=== PATIENT | male | born 1945 | race Caucasian/White ===

== ENCOUNTER → 2016-08-10 | Outpatient (CLI) | payer MEDICARE ==
[2016-08-10 10:11] LABS: Basophils # (A) 0.1 k/uL (0-0.2); Basophils % (A) 1 %; CH 31.7; CHCM 33.9; Eosinophils # (A) 0.4 k/uL (0-0.7); Eosinophils % (A) 4 %; HCT 48.7 % (39.0-53.0); HDW 2.51; HGB 15.7 gm/dL (13.0-17.5); Luc # (Auto) 0.14; Luc % (Auto) 2; Lymphocytes # (A) 1.7 k/uL (1.0-4.8); Lymphocytes % (A) 20 %; MCH 30.4 pg (25.0-35.0); MCHC 32.3 g/dL (31.0-37.0); MCV 93.9 fL (80.0-100.0); Mean Platelet Volume 7.3; Monocytes # (A) 0.6 k/uL (0-1.0); Monocytes % (A) 7 %; Neutrophils # (A) 5.6 k/uL (1.3-7.7); Neutrophils % (A) 66 %; RBC 5.18 m/uL (4.30-5.90); RDW 13.5 % (11.5-15.5); WBC 8.5 k/uL (3.8-10.6); WBC (Perox) 8.36
[2016-08-10 10:32] LABS: ALT 34 U/L (21-72); AST 25 U/L (17-59); Alkaline Phosphatase 77 U/L (38-126); Anion Gap 9 mmol/L; Blood Urea Nitrogen 19 mg/dL (9-20); Calcium 9.3 mg/dL (8.4-10.2); Carbon Dioxide 28 mmol/L (22-30); Chloride 104 mmol/L (98-107); Cholesterol 243 mg/dL (<200); Glucose 88 mg/dL (74-99); HDL Cholesterol 57 mg/dL (40-60); Non-African American GFR(MDRD) >60 (>60 ml/min/1.73 sqM); Potassium 4.5 mmol/L (3.5-5.1); Sodium 141 mmol/L (137-145); Total Bilirubin 0.9 mg/dL (0.2-1.3); Triglycerides 112 mg/dL (<150)
[2016-08-10 11:02] LABS: Prostate Specific Antigen 1.01 ng/mL (0.00-4.00)
[2016-08-10 11:42] LABS: Hemoglobin A1C 5.2 % (4.2-6.1)
== END | disposition home or self-care (01) ==
LOC: LABWHC1 09:32
PROVIDERS: ATTEND Internal Medicine Geriatric Medicine
DX: K21.9 Gastro-esophageal reflux disease without esophagitis (principal); R35.0 Frequency of micturition; R73.9 Hyperglycemia, unspecified; R78.0 Finding of alcohol in blood; N40.0 Benign prostatic hyperplasia without lower urinary tract symptoms; R00.1 Bradycardia, unspecified
CPT/HCPCS: 36415; 80053; 80061; 83036; 84153; 84439; 84443; 85025

== ENCOUNTER → 2016-09-18 | Outpatient (CLI) | payer MEDICARE ==
[2016-09-18 10:55] LABS: ALT 28 U/L (21-72); AST 31 U/L (17-59); Alkaline Phosphatase 80 U/L (38-126); Anion Gap 12 mmol/L; Blood Urea Nitrogen 19 mg/dL (9-20); Calcium 9.8 mg/dL (8.4-10.2); Carbon Dioxide 31 mmol/L (22-30); Chloride 100 mmol/L (98-107); Cholesterol 192 mg/dL (<200); Glucose 94 mg/dL (74-99); HDL Cholesterol 65 mg/dL (40-60); Non-African American GFR(MDRD) >60 (>60 ml/min/1.73 sqM); Potassium 4.6 mmol/L (3.5-5.1); Sodium 143 mmol/L (137-145); Total Bilirubin 0.8 mg/dL (0.2-1.3); Total Protein 7.5 g/dL (6.3-8.2); Triglycerides 86 mg/dL (<150)
== END | disposition home or self-care (01) ==
LOC: LABWHC1 09:45
PROVIDERS: ATTEND Internal Medicine Geriatric Medicine
DX: K21.9 Gastro-esophageal reflux disease without esophagitis (principal)
CPT/HCPCS: 36415; 80053; 80061

== ENCOUNTER → 2017-04-28 | Outpatient (CLI) | payer MEDICARE ==
[2017-04-28 08:31] LABS: Basophils # (A) 0.1 k/uL (0-0.2); Basophils % (A) 1 %; CHCM 33.4; Eosinophils # (A) 0.3 k/uL (0-0.7); Eosinophils % (A) 6 %; HCT 47.3 % (39.0-53.0); HDW 2.29; HGB 15.1 gm/dL (13.0-17.5); Luc # (Auto) 0.11; Luc % (Auto) 2; Lymphocytes # (A) 1.5 k/uL (1.0-4.8); Lymphocytes % (A) 25 %; MCH 30.7 pg (25.0-35.0); MCHC 31.9 g/dL (31.0-37.0); MCV 96.3 fL (80.0-100.0); Mean Platelet Volume 7.2; Monocytes # (A) 0.5 k/uL (0-1.0); Monocytes % (A) 7 %; Neutrophils # (A) 3.6 k/uL (1.3-7.7); Neutrophils % (A) 59 %; RBC 4.91 m/uL (4.30-5.90); RDW 14.6 % (11.5-15.5); WBC (Perox) 5.64
[2017-04-28 09:29] LABS: ALT 34 U/L (21-72); AST 38 U/L (17-59); Alkaline Phosphatase 91 U/L (38-126); Anion Gap 7 mmol/L; Blood Urea Nitrogen 16 mg/dL (9-20); Calcium 9.2 mg/dL (8.4-10.2); Carbon Dioxide 29 mmol/L (22-30); Chloride 103 mmol/L (98-107); Cholesterol 181 mg/dL (<200); Glucose 90 mg/dL (74-99); HDL Cholesterol 67 mg/dL (40-60); Non-African American GFR(MDRD) >60 (>60 ml/min/1.73 sqM); Potassium 4.5 mmol/L (3.5-5.1); Sodium 139 mmol/L (137-145); Total Bilirubin 0.6 mg/dL (0.2-1.3); Total Protein 6.6 g/dL (6.3-8.2)
[2017-04-29 10:53] LABS: Hemoglobin A1C 5.4 % (4.2-6.1)
== END | disposition home or self-care (01) ==
LOC: LABWHC1 07:46
PROVIDERS: ATTEND Internal Medicine Geriatric Medicine
DX: K21.9 Gastro-esophageal reflux disease without esophagitis (principal); R73.9 Hyperglycemia, unspecified; E78.00 Pure hypercholesterolemia, unspecified
CPT/HCPCS: 36415; 80053; 80061; 83036; 84439; 84443; 85025

== ENCOUNTER → 2017-12-16 | Outpatient (CLI) | payer MEDICARE ==
[2017-12-16 09:26] LABS: Basophils # (A) 0.1 k/uL (0-0.2); Basophils % (A) 2 %; Eosinophils # (A) 0.4 k/uL (0-0.7); Eosinophils % (A) 8 %; HCT 49.6 % (39.0-53.0); HGB 16.2 gm/dL (13.0-17.5); Lymphocytes # (A) 1.4 k/uL (1.0-4.8); Lymphocytes % (A) 23 %; MCH 30.5 pg (25.0-35.0); MCHC 32.7 g/dL (31.0-37.0); MCV 93.2 fL (80.0-100.0); Mean Platelet Volume 6.9; Monocytes # (A) 0.5 k/uL (0-1.0); Monocytes % (A) 9 %; Neutrophils # (A) 3.3 k/uL (1.3-7.7); Neutrophils % (A) 57 %; Platelet Count 311 k/uL (150-450); RBC 5.32 m/uL (4.30-5.90); RDW 13.6 % (11.5-15.5); WBC 5.9 k/uL (3.8-10.6)
[2017-12-16 09:33] LABS: ALT 35 U/L (21-72); AST 33 U/L (17-59); Albumin 4.3 g/dL (3.5-5.0); Alkaline Phosphatase 79 U/L (38-126); Blood Urea Nitrogen 16 mg/dL (9-20); Calcium 9.6 mg/dL (8.4-10.2); Carbon Dioxide 27 mmol/L (22-30); Chloride 105 mmol/L (98-107); Cholesterol 200 mg/dL (<200); Creatine Kinase 198 U/L (55-170); Glucose 86 mg/dL (74-99); HDL Cholesterol 55 mg/dL (40-60); LDL Cholesterol,Calculated 121 mg/dL (0-99); Total Bilirubin 0.9 mg/dL (0.2-1.3); Total Protein 6.8 g/dL (6.3-8.2); Triglycerides 121 mg/dL (<150)
[2017-12-16 10:01] LABS: Prostate Specific Antigen 1.15 ng/mL (0.00-4.00)
[2017-12-16 10:51] LABS: Anion Gap 11 mmol/L; Potassium 5.3 mmol/L (3.5-5.1); Sodium 143 mmol/L (137-145)
[2017-12-16 17:28] LABS: Hemoglobin A1C 5.3 % (4.0-6.0)
== END | disposition home or self-care (01) ==
LOC: LABWHC1 08:13
PROVIDERS: ATTEND Internal Medicine Geriatric Medicine
DX: E78.00 Pure hypercholesterolemia, unspecified (principal); R73.9 Hyperglycemia, unspecified; N40.0 Benign prostatic hyperplasia without lower urinary tract symptoms; K21.9 Gastro-esophageal reflux disease without esophagitis
CPT/HCPCS: 36415; 80053; 80061; 82550; 83036; 84153; 85025

== ENCOUNTER → 2019-02-09 | Outpatient (CLI) | payer MEDICARE ==
--- NOTE | 2019-02-09 16:48 | CONS ---
CONSULTATION REASON FOR CONSULTATION: Sleep apnea. This is a 73-year-old male patient who is coming in today accompanied by his , a retired [employer] nurse, due to concerns about obstructive sleep apnea. His has noted that the patient is snoring very loudly and he is quitting breathing at nighttime and is feeling fatigued during the day. He goes to bed between 9 and 10 p.m. and wakes up at 7 a.m. in the morning. He feels tired during the day and occasionally falls asleep and takes naps. He is averaging around 7 to 8 hours of sleep. He never falls asleep while driving his car. He drives only short distances. On one occasion he had a long trip out of state and he did not fall asleep. He denies waking up choking or gasping for air. No restlessness in the lower extremities. No sleepwalking or sleeptalking. No nighttime chest pain or palpitations. There is occasional heartburn, mainly in the morning. He does wake up tired, however. He drinks around 4 cups of coffee during the day and 2 to 3 beers at nighttime. No recent weight gain or weight loss. PAST MEDICAL HISTORY: 1. Depression. 2. Chronic back pain. 3. Hyperlipidemia. 4. BPH. SURGICAL HISTORY: Surgical history involves inguinal hernia repair. DRUG ALLERGIES: SULFA. OUTPATIENT MEDICATIONS: Outpatient medications include: 1. Flomax 0.4 mg p.o. daily. 2. Prilosec 20 mg p.o. daily. 3. Vicodin on an as-needed basis. 4. A cholesterol drug. 5. An anti-depressant drug. He cannot recall the brand. SOCIAL HISTORY: The patient is a nonsmoker. No history of alcoholism. History of history of IV drugs. Drinks 3 beers at nighttime. FAMILY HISTORY: Negative for sleep apnea. Family history is positive for heart disease. Both of his parents had heart disease. REVIEW OF SYSTEMS: Fourteen-point review of systems was done. Positive findings are all mentioned above in the history of present illness. His weight is up by around 7 pounds over the past one year. He wakes up at least 2-3 times in the middle of the night, mainly to use the bathroom, as the patient is known to have BPH. He averages around 8 hours of sleep. No history of any motor vehicle accidents while sleeping. No drowsiness or veering off the road while driving his car. He sleeps in different body positions, including back, side and stomach. He watches TV in the bedroom. He takes a nap around 3 p.m. As mentioned, he drinks 4-5 caffeinated beverages a day, mainly in the form of coffee. No chest pain. No palpitations. No cardiac arrhythmias. No cough. No sputum production. No pleurisy. No aspiration. No nausea or vomiting. No altered mentation. No morning headaches. No seizure activity. PHYSICAL EXAMINATION: VITAL SIGNS: BP is 122/79, pulse 72, respirations 16, temperature 98.1, saturation 94% on room air. Height is 5 feet 8 inches, weight 193, BMI 29.3. GENERAL APPEARANCE: Calm, comfortable. HEAD: Atraumatic, normocephalic. NECK: Supple. Mallampati class IV. There is no goiter or neck masses. LUNGS: Clear to auscultation. HEART: Heart sounds are regular rate and rhythm. Normal S1, S2. No S3, S4. No murmurs. ABDOMEN: Soft, nontender. EXTREMITIES: No edema. No cyanosis or clubbing. NEUROLOGIC: The patient is alert and oriented x3. No focal neurological deficits. PSYCHIATRIC: Negative for anxiety or depression. SKIN: Negative for any wounds or ulcerations. IMPRESSION: 1. Hypersomnia/fatigue, currently under investigation. Consider obstructive sleep apnea. [place] score is currently 6. 2. Loud snoring. 3. Witnessed apneas. 4. Benign prostatic hypertrophy. 5. Hyperlipidemia. 6. Chronic back pain. 7. History of depression. PLAN: 1. Will proceed with a screening polysomnogram to evaluate this patient for sleep apnea. 2. Will encourage weight loss. 3. Overall sleep hygiene measures are acceptable. He is taking caffeine to get himself stimulated during the day. He takes a nap in the afternoon. Will make further investigations based on results of the sleep study. CPAP therapy will be offered if needed. MMODL / IJN: [id number] /
== END ==
LOC: SLEEP 13:32
PROVIDERS: ATTEND Internal Medicine Critical Care Medicine
DX: G47.10 Hypersomnia, unspecified (principal); N40.0 Benign prostatic hyperplasia without lower urinary tract symptoms; E78.5 Hyperlipidemia, unspecified; G89.29 Other chronic pain; M54.9 Dorsalgia, unspecified; F32.9 Major depressive disorder, single episode, unspecified; Z79.899 Other long term (current) drug therapy; Z88.2 Allergy status to sulfonamides
CPT/HCPCS: 99211

== ENCOUNTER → 2019-05-14 | Outpatient (CLI) | payer MEDICARE ==
--- NOTE | 2019-05-14 17:00 | ECHOF ---
Referral Reason:G47.33 VENECIA MEASUREMENTS -------- HEIGHT: 177.8 cm WEIGHT: 83.9 kg BP: RVIDd: 3.3 cm (< 3.3) IVSd: 1.1 cm (0.6 - 1.1) LVIDd: 4.4 cm (3.9 - 5.3) LVPWd: 1.2 cm (0.6 - 1.1) IVSs: 1.5 cm LVIDs: 3.0 cm LVPWs: 1.5 cm LA Diam: 3.6 cm (2.7 - 3.8) LAESV Index (A-L): 21.94 ml/m Ao Diam: 3.0 cm (2.0 - 3.7) AV Cusp: 2.2 cm (1.5 - 2.6) MV EXCURSION: 14.577 mm (> 18.000) MV EF SLOPE: 34 mm/s (70 - 150) EPSS: 0.7 cm MV E Aamdor: 0.68 m/s MV DecT: 277 ms MV A Amador: 0.83 m/s MV E/A Ratio: 0.82 RAP: 5.00 mmHg RVSP: 25.88 mmHg TAPSE: 19.54 mm FINDINGS -------- Sinus rhythm. This was a technically adequate study. The left ventricular size is normal. There is borderline concentric left ventricular hypertrophy. Overall left ventricular systolic function is normal with, an EF between 60 - 65 %. The diastolic filling pattern is normal for the age of the patient 12.25. The right ventricle is mildly enlarged. Normal LA size by volume 22+/-6 ml/m2. The right atrium is normal in size. Lipomatous Hypertrophy of the atrial septum is present The aortic valve is trileaflet and appears structurally normal. The mitral valve is normal. Mild tricuspid regurgitation present. Right ventricular systolic pressure is normal at < 35 mmHg. Trace/mild (physiologic) pulmonic regurgitation. The aortic root size is normal. Normal inferior vena cava with normal inspiratory collapse consistent with estimated right atrial pre ssure of 5 mmHg. There is no pericardial effusion. CONCLUSIONS -------- 1. Sinus rhythm. 2. This was a technically adequate study. 3. The left ventricular size is normal. 4. There is borderline concentric left ventricular hypertrophy. 5. Overall left ventricular systolic function is normal with, an EF between 60 - 65 %. 6. The diastolic filling pattern is normal for the age of the patient 12.25 7. The right ventricle is mildly enlarged. 8. Normal LA size by volume 22+/-6 ml/m2. 9. The right atrium is normal in size. 10. Lipomatous Hypertrophy of the atrial septum is present 11. The aortic valve is trileaflet and appears structurally normal. 12. The mitral valve is normal. 13. Mild tricuspid regurgitation present. 14. Right ventricular systolic pressure is normal at < 35 mmHg. 15. Trace/mild (physiologic) pulmonic regurgitation. 16. The aortic root size is normal. 17. Normal inferior vena cava with normal inspiratory collapse consistent with estimated right atrial pressure of 5 mmHg. 18. There is no pericardial effusion. [employer] REVERSE WINDER: Janine Wagner RDCS
== END ==
LOC: RADECHMAIN 12:50
PROVIDERS: ATTEND Internal Medicine Critical Care Medicine
DX: I07.1 Rheumatic tricuspid insufficiency (principal); I37.1 Nonrheumatic pulmonary valve insufficiency
CPT/HCPCS: 93306

== ENCOUNTER → 2019-09-09 | Outpatient (CLI) | payer MEDICARE ==
[2019-09-09 11:50] LABS: Basophils # (A) 0.1 k/uL (0-0.2); Basophils % (A) 1 %; Eosinophils # (A) 0.3 k/uL (0-0.7); Eosinophils % (A) 4 %; HCT 46.5 % (39.0-53.0); HGB 15.2 gm/dL (13.0-17.5); Lymphocytes # (A) 1.4 k/uL (1.0-4.8); Lymphocytes % (A) 21 %; MCH 30.4 pg (25.0-35.0); MCHC 32.7 g/dL (31.0-37.0); MCV 92.9 fL (80.0-100.0); Mean Platelet Volume 7.4; Monocytes # (A) 0.5 k/uL (0-1.0); Monocytes % (A) 8 %; Neutrophils # (A) 4.2 k/uL (1.3-7.7); Neutrophils % (A) 64 %; Platelet Count 266 k/uL (150-450); RBC 5.01 m/uL (4.30-5.90); RDW 13.4 % (11.5-15.5); WBC 6.6 k/uL (3.8-10.6)
[2019-09-09 16:51] LABS: Chol/HDL Ratio 3.02; LDL Cholesterol,Calculated 98.4 mg/dL (0.0-131.0); VLDL Calculation 16.6 mg/dL (5.00-40.00)
[2019-09-09 16:52] LABS: Albumin 4.1 g/dL (3.80-4.90); Albumin/Globulin Ratio 2.05 (1.60-3.17); Anion Gap 9.4 mmol/L (4.00-12.00); Calcium 9.2 mg/dL (8.7-10.3); Carbon Dioxide 26.6 mmol/L (21.6-31.8); Non-African American GFR(CKD) 73.3 (60.0-200.0); Potassium 4.5 mmol/L (3.5-5.5); Total Bilirubin 0.8 mg/dL (0.2-1.2); Total Protein 6.1 g/dL (6.2-8.2)
[2019-09-09 16:59] LABS: Hemoglobin A1C 5.5 % (4.0-6.0)
== END | disposition home or self-care (01) ==
LOC: LABWHC1 09:50
PROVIDERS: ATTEND Nurse Practitioner Gerontology
DX: N40.0 Benign prostatic hyperplasia without lower urinary tract symptoms (principal); E78.2 Mixed hyperlipidemia; R73.9 Hyperglycemia, unspecified
CPT/HCPCS: 36415; 80053; 80061; 83036; 84153; 84443; 85025

== ENCOUNTER → 2020-05-19 | Outpatient (CLI) | payer MEDICARE ==
--- NOTE | 2020-05-19 11:44 | P.STRESS ---
- Stress Test Note Stress Test Results/Findings: Exam Performed: stress echo exercise Exam Date: 05/19/20 Reason for Exam: CP / SOB Height: 5 ft 10 in Weight: 88.451 kg Protocol: VICTORIANO Stage: 2 Duration of Exercise: 3:15 Resting Heart Rate: 74 Resting Blood Pressure: 113/69 Maximum Achieved Heart Rate: 135 Maximum Achieved Blood Pressure: 180/85 85% PMHR: 122 100% PMHR: 144 METS: 4.8 Technologist Comment: Stress Test Results/Findings: Baseline heart rate 74 beats a minute, Baseline blood pressure 113/69 mmHg Patient exercised on a Victoriano protocol for only 3 minutes 15 seconds, achieving a peak heart rate of 131 beats a minute Twelve-lead ECG shows a right bundle branch block with left anterior fascicular block There was no ECG is for ischemia no arrhythmias were noted Baseline 2-D echo showed normal LV systolic function without segmental wall motion abnormalities At peak exercise there was excellent augmentation of oral LV contractility without development of any wall motion amenities After complete healing well systolic function within normal line peak blood pressure was 180/85 mmHg Impression Very poor exercise capacity and a Victoriano protocol Patient was short of breath with this level of workload Right bundle branch block left anterior fascicular block at baseline on ECG No stress-induced ischemia no ST segment abnormalities with exercise
== END | disposition home or self-care (01) ==
LOC: RADNMMAIN 08:55
PROVIDERS: ATTEND Internal Medicine Geriatric Medicine
DX: I45.2 Bifascicular block (principal); R06.02 Shortness of breath
CPT/HCPCS: 93351

== ENCOUNTER → 2020-06-26 | Outpatient (CLI) | payer MEDICARE ==
[2020-06-26 10:56] LABS: Basophils # (A) 0.1 k/uL (0-0.2); Basophils % (A) 1 %; Eosinophils # (A) 0.4 k/uL (0-0.7); Eosinophils % (A) 7 %; HCT 47.6 % (39.0-53.0); HGB 15.3 gm/dL (13.0-17.5); Lymphocytes # (A) 1.4 k/uL (1.0-4.8); Lymphocytes % (A) 25 %; MCHC 32.2 g/dL (31.0-37.0); MCV 93.2 fL (80.0-100.0); Mean Platelet Volume 6.9; Monocytes # (A) 0.5 k/uL (0-1.0); Monocytes % (A) 9 %; Neutrophils # (A) 3.1 k/uL (1.3-7.7); Neutrophils % (A) 56 %; Platelet Count 361 k/uL (150-450); RDW 13.3 % (11.5-15.5); WBC 5.6 k/uL (3.8-10.6)
[2020-06-26 16:49] LABS: Hemoglobin A1C 5.3 % (4.0-6.0)
[2020-06-26 17:11] LABS: African American GFR (CKD) 84.4 (60.0-200.0); Albumin 4.2 g/dL (3.80-4.90); Albumin/Globulin Ratio 1.91 (1.60-3.17); Anion Gap 6.8 mmol/L (4.00-12.00); Calcium 9.5 mg/dL (8.7-10.3); Carbon Dioxide 29.2 mmol/L (21.6-31.8); Chol/HDL Ratio 3.3; Globulin 2.2 g/dL (1.6-3.3); LDL Cholesterol,Calculated 112.4 mg/dL (0.0-131.0); Non-African American GFR(CKD) 72.8 (60.0-200.0); Potassium 4.8 mmol/L (3.5-5.5); Total Bilirubin 0.7 mg/dL (0.2-1.2); Total Protein 6.4 g/dL (6.2-8.2); VLDL Calculation 16.6 mg/dL (5.00-40.00)
== END | disposition home or self-care (01) ==
LOC: LABWHC1 09:25
PROVIDERS: ATTEND Internal Medicine Geriatric Medicine
DX: E78.2 Mixed hyperlipidemia (principal); R07.9 Chest pain, unspecified; R06.02 Shortness of breath
CPT/HCPCS: 36415; 80053; 80061; 83036; 84443; 85025

== ENCOUNTER → 2020-07-04 | Outpatient (CLI) | payer MEDICARE ==
--- NOTE | 2020-07-04 11:35 | XR ---
EXAMINATION TYPE: XR chest 2V DATE OF EXAM: 07/04/2020 COMPARISON: None INDICATION: Short of breath TECHNIQUE: Frontal and lateral views of the chest are obtained. FINDINGS: The heart size is normal. The pulmonary vasculature is normal. The lungs are clear. IMPRESSION: 1. No acute pulmonary process.
== END | disposition home or self-care (01) ==
LOC: LABWHC1 10:49
PROVIDERS: ATTEND Internal Medicine Geriatric Medicine
DX: R06.02 Shortness of breath (principal); Z20.828 Contact with and (suspected) exposure to other viral communicable diseases
CPT/HCPCS: 36415; 71046; 86769

== ENCOUNTER → 2020-11-29 | Outpatient (CLI) | payer MEDICARE ==
--- NOTE | 2020-11-29 15:57 | XR ---
EXAMINATION TYPE: XR chest 2V DATE OF EXAM: 11/29/2020 COMPARISON: 07/04/2020 HISTORY: Dry cough for 3 weeks TECHNIQUE: Frontal and lateral views of the chest are obtained. FINDINGS: Heart size is within normal limits. No pleural effusion, focal consolidation or pneumothor ax. Degenerative changes of the thoracic spine. Hyperaeration lungs and flattening of the diaphragms suggestive of COPD. IMPRESSION: 1. No acute pulmonary disease. 2. COPD
== END | disposition home or self-care (01) ==
LOC: RADXRMAIN 11:49
PROVIDERS: ATTEND Nurse Practitioner Family
DX: J44.9 Chronic obstructive pulmonary disease, unspecified (principal)
CPT/HCPCS: 71046

== ENCOUNTER → 2022-11-13 | Outpatient (CLI) | payer MEDICARE ==
--- NOTE | 2022-11-13 18:08 | MR ---
EXAMINATION TYPE: MR lumbar spine wo/w con DATE OF EXAM: 11/13/2022 COMPARISON: Plain films 11/22/2022 HISTORY: Lower back pain, into back of left thigh. CONTRAST: 0 mL intravenous Gadavist. TECHNIQUE: Multiplanar, multisequence images of the lumbar spine were acquired. FINDINGS: L5-S1: There is a large left paracentral disc herniation measuring 1 cm. This is displacing the exiti ng nerve root and thecal sac posteriorly at this level. Left lateral recess is stenotic. Correlate wi th left S1 radicular symptoms. L4-L5: There is narrowing of disc height through this level. Residual disc bulge is mild anterior the pauline sac compression. Facet hypertrophy as posterior lateral thecal sac compression. No spinal canal s tenosis is present. There is moderate bilateral foraminal narrowing. L3-L4: There is loss of disc height this level. Residual disc bulge causing anterior thecal sac blanquita ening. Facet hypertrophy and ligamentum flavum laxity is present. No spinal canal stenosis present. M ild right and moderate left foraminal narrowing is present. L2-L3: There is loss of disc height at this level. Disc uncovering is present from minimal retrolisth esis of L1-2 on L3. Residual disc has moderate anterior thecal sac impression some spinal canal narro wing is present. Facet hypertrophy and ligamentum flavum laxity is present with posterior lateral the pauline sac compression. Moderate bilateral foraminal stenosis is present. L1-L2: No significant disc bulge or disc herniation. There is loss of disc height at this level. No spinal canal stenosis. Some foraminal narrowing is present. T12-L1: No significant disc bulge or disc herniation. No spinal canal stenosis. No foraminal stenos is. Neural foramen are patent.. Following contrast administration no abnormal enhancement is evident. Endplate changes appear to be chronic. Vertebral body heights are preserved. IMPRESSION: 1. Large left paracentral disc herniation L5-S1 displacing the left S1 nerve root and thecal sac. Cor relate with left S1 radicular symptoms. 2. Multilevel degenerative disc changes greatest at L2-3 and L4-5. 3. Disc bulging and facet hypertrophy contributing to spinal canal narrowing. No AP spinal canal sten osis. 4. Multilevel foraminal narrowing.
== END | disposition home or self-care (01) ==
LOC: RADMRIMAIN 11:57
PROVIDERS: ATTEND Internal Medicine Geriatric Medicine
DX: M47.816 Spondylosis without myelopathy or radiculopathy, lumbar region (principal); M46.07 Spinal enthesopathy, lumbosacral region; M51.37 Other intervertebral disc degeneration, lumbosacral region; M99.73 Connective tissue and disc stenosis of intervertebral foramina of lumbar region
CPT/HCPCS: 72158; A9585

== ENCOUNTER → 2023-06-19 | Outpatient (CLI) | payer MEDICARE ==
[~2023-06-19] MED LIST: REGADENOSON 0.4 MG/5 ML SYRINGE IV PRN
--- NOTE | 2023-06-19 12:08 | CA ---
Lexiscan Nuclear Stress Test Report Name: Baldemar Lewis Exam Date: 06/19/2023 11:07 Exam Location: [facility] Ht (in): 70 Wt (lb): 190 BSA: 2.04 Ordering Phys: Baldemar Sanchez MD Referring Phys: EDVIN,, Technologist: Yousif Tejada Age: 78 Gender: M : 1945 Procedure CPT: Indications: I20.9 Angina ICD-10 Codes: Patient History: ELENA, ANGINA, CHOL, FAMILY HX Medications: SEE LIST Meds past 24 hrs: Pretest Chest Pain: STRESS TEST Lexiscan Protocol Exercise Duration (min:sec): 02:[address] Depressions (mm): Angina Score: Rinaldi Score: Resting HR (bpm): 79 Peak HR (bpm): 90 Resting BP (mmHg): 125 / 83 Peak BP (mmHg): 145 / 66 MPHR: 141 Target HR: 120 % MPHR: 64 METS: 1.0 Total Dose: Peak Dose: Atropine: Double Product: 98298 BP Response: Stress Termination: END OF DOSAGE Stress Symptoms: Stress Summary: ECG ANALYSIS Resting ECG: Sinus rhythm, right bundle branch block, heart rate 70 beats a minute Stress ECG: No significant ST-T wave changes that are diagnostic for ischemia with Lexiscan infusion. Occasional PVCs during the stress test. No sustained arrhythmias CONCLUSIONS Nonischemic ECG response to Lexiscan infusion normal clinical and hemodynamic response to Lexiscan infusion Overall normal ECG portion of nuclear Lexiscan stress test Please refer to the nuclear imaging portion of the stress test for complete interpretation of this study Dr Miguelangel Arnold (Electronically Signed) Final Date: 19 June 2023 12:06
--- NOTE | 2023-06-19 13:16 | NM ---
EXAMINATION TYPE: NM stress lexiscan cardiolite DATE OF EXAM: 06/19/2023 COMPARISON: NONE CLINICAL INDICATION: Male, 78 years old with history of I20.9 ANGINA; TECHNIQUE: After the intravenous administration of 9.2 mCi Tc 99m Sestamibi - Cardiolite resting SPE CT images acquired 45 minutes post injection. The patient received 0.4mg Lexiscan, 24.5 mCi Tc 99m Sestamibi - Stress images obtained [address] injection FINDINGS: Review of stress and rest SPECT images demonstrates small area of reversible ischemia apical lateral wall. Correlate clinically. Gated analysis shows normal wall motion with an estimated left ventricula r ejection fraction of 68 %. IMPRESSION: Small area of reversible ischemia apical lateral wall. Correlate clinically.
== END | disposition home or self-care (01) ==
LOC: RADNMMAIN 08:52
PROVIDERS: ATTEND Internal Medicine Geriatric Medicine
DX: I20.9 Angina pectoris, unspecified (principal); E78.00 Pure hypercholesterolemia, unspecified
CPT/HCPCS: 93017; 78452; A9500; J2785

== ENCOUNTER → 2023-07-21 | Outpatient (CLI) | payer MEDICARE ==
[2023-07-21 19:46] LABS: HCT 48.9 % (39.6-50.0); HGB 16.1 g/dL (13.0-17.0); MCH 31.4 pg (27.0-32.0); MCHC 32.9 g/dL (32.0-37.0); MCV 95.5 FL (80.0-97.0); Mean Platelet Volume 10.8 FL (9.5-12.2); NRBC Per 100 WBC 0.02 X 10*3/uL (0.00-0.01); Platelet Count 297 X 10*3/uL (140-440); RBC 5.12 X 10*6/uL (4.40-5.60); RDW 13.9 % (11.5-14.5); WBC 9.07 X 10*3/uL (4.50-10.00)
[2023-07-21 20:27] LABS: Blood Urea Nitrogen 13.3 mg/dL (9.0-27.0); Carbon Dioxide 24.6 mmol/L (21.6-31.8); Chloride 103 mmol/L (96-109); Potassium 5.1 mmol/L (3.5-5.5); Sodium 139 mmol/L (135-145)
== END | disposition home or self-care (01) ==
LOC: LABPAT 13:54
PROVIDERS: ATTEND Internal Medicine
DX: Z01.812 Encounter for preprocedural laboratory examination (principal); R06.02 Shortness of breath
CPT/HCPCS: 80051; 82565; 84520; 85027

== ENCOUNTER → 2023-07-25 | Day surgery (SDC) | payer MEDICARE ==
[~2023-07-25] MED LIST changes: +ALPRAZolam 0.25 MG TAB PO PRN; +ALPRAZolam 0.5 MG TAB PO PRN; +ASPIRIN 325 MG TAB PO STA; +HEPARIN SODIUM 1,000 UN/ML (10ML VL) IVP ONE; +HEPARIN SODIUM,PORCINE (1 ML) 2,500 UNIT in SODIUM CHLORIDE 0.9% 250 ML IRRIGATION PRN; +HEPARIN SODIUM,PORCINE 10,000 UNIT in SODIUM CHLORIDE 0.9% 1,000 ML IRRIGATION PRN; +IOPAMIDOL-370 100ML BTL INJ ONE; +LIDOCAINE 1% INJ 10MG/ML (20 ML MDV) SQ ONE; +MIDAZOLAM 2 MG/2 ML VIAL IVP ONE; +NITROGLYCERIN SL TABS 0.4 MG TAB SUBLINGUAL PRN; -REGADENOSON 0.4 MG/5 ML SYRINGE IV PRN; +SODIUM CHLORIDE 0.9% 1,000 ML in EMPTY BAG 1 BAG IV SCH; +VERAPAMIL SYRINGE (5 MG/10 ML) INTRAARTER ONE; +fentaNYL (PF) 50 MCG/ML 2 ML AMP IVP ONE
--- NOTE | 2023-07-25 13:23 | P.CARDCATH ---
Description of Procedure: PROCEDURES PERFORMED: Left heart catheterization, bilateral coronary angiography, ultrasound guided arterial access INDICATION: Abnormal stress test CONSENT:I have discussed the risks, benefits and alternative therapies for the above-mentioned procedure and for both sedation/analgesia as well as necessary blood product administration, if indicated, as they pertain to this patient. The patient has indicated understanding and acceptance of the risks and procedures discussed. PROCEDURE: After the risks, benefits and alternatives of the above mentioned procedure explained in detail with the patient, informed consent was obtained. Patient was taken to the catheterization lab and prepped and draped in usual fashion. Ultrasound guidance was used to assess for arterial access. 1% lidocaine was used to anesthetize the right radial artery. A 6-Angolan sheath was placed in the right radial artery using modified Seldinger technique and ultrasound guidance. Left coronary angiography was performed with a 5-Angolan JL 3.5 catheter and right coronary angiography was performed with a 5-Angolan AR2 catheter in various views. A 5-Angolan AR2 catheter was inserted into the left ventricle and pressure measurements were obtained. The right radial sheath was removed and a TR band was placed with hemostasis achieved. The patient to lerated the procedure well. Patient was transported back to the post catheterization holding area in stable condition. Conscious Sedation: Patient was monitored under the direct supervision of myself for conscious sedation using Versed and fentanyl for a total duration of 12 minutes HEMODYNAMICS: Order: 112/78 LV: 118/5, LVEDP 10 SELECTIVE CORONARY ARTERIOGRAPHY: LEFT MAIN: The left main is a large caliber vessel which bifurcates into the LAD and circumflex. There is no significant stenosis. LEFT ANTERIOR DESCENDING CORONARY ARTERY: LAD is a large caliber vessel which wraps around to the apex. There is no significant stenosis. LEFT CIRCUMFLEX CORONARY ARTERY: Left circumflex is a moderate caliber vessel without significant stenosis. RIGHT CORONARY ARTERY: The right coronary artery is a large caliber vessel which gives off a PDA and PLV branch and is the dominant vessel. There is no significant stenosis. FINAL IMPRESSION: 1. Normal coronary arteries as described above. 2. Normal left sided filling pressures PLAN: 1. Aggressive risk factor modification per most recent ACC/AHA guidelines. 2. Follow-up in the office in 1-2 weeks.
[2023-07-25 16:54] VITALS: BP 119/63; PULSE 60; RESP 16
== END ==
LOC: CATHCVL 10:39
PROVIDERS: ATTEND Internal Medicine
DX: I45.2 Bifascicular block (principal); E78.5 Hyperlipidemia, unspecified; F10.90 Alcohol use, unspecified, uncomplicated; Z82.49 Family history of ischemic heart disease and other diseases of the circulatory system; Z79.899 Other long term (current) drug therapy
CPT/HCPCS: 93458; 76937; C1769; C1894; J2250; J2001; J3010; J1644; Q9967

== ENCOUNTER 2023-10-18 00:01 | Emergency (ER) | payer MEDICARE ==
[2023-10-18 00:56] VITALS: BP 136/79; PULSE 86; RESP 18; TEMP 99
[2023-10-18] MEDS: DIPH,PERTUS(ACELL)TETVAC-LF 0.5 ML VIAL IM ONE (01:33)
--- NOTE | 2023-10-18 01:55 | ED ---
Wound/Laceration HPI - General Chief Complaint: Wound/Laceration Stated Complaint: fell facial injury Time Seen by Provider: 10/18/23 00:36 Source: patient Mode of arrival: ambulatory Limitations: no limitations - History of Present Illness Initial Comments: 78-year-old male presenting with chief complaint of facial laceration. Patient was walking in his backyard tonight when he tripped over a pile of bricks that he was unable to see in the dark. Patient is his mouth but now has a 1 cm laceration to the upper lip as well as his 1 cm laceration to the inside of the upper lip. Patient had no loss of consciousness or blood thinners. He denies any headache, neck pain, vision or hearing changes, nausea, vomiting, dizziness, numbness, tingling, or weakness. - Related Data Home Medications Medication Instructions Recorded Confirmed Citalopram Hydrobromide [CeleXA] 20 mg PO DAILY 10/17/15 07/25/23 Tamsulosin HCl [Flomax] 1 tab PO DAILY 10/17/15 07/25/23 ALPRAZolam [Xanax] 0.25 mg PO BID PRN 07/22/23 07/25/23 Albuterol Inhaler [Ventolin Hfa 1 - 2 puff INHALATION BID 07/22/23 07/25/23 Inhaler] Aspirin [Adult Low Dose Aspirin EC] 81 mg PO DAILY 07/22/23 07/25/23 Atorvastatin [Lipitor] 10 mg PO DAILY 07/22/23 07/25/23 Co Q 10 (Unk) 1 tab PO DAILY 07/22/23 07/25/23 Metoprolol Succinate [Metoprolol 25 mg PO DAILY 07/22/23 07/25/23 Succinate ER] Pantoprazole [Protonix] 40 mg PO DAILY 07/22/23 07/25/23 amLODIPine BESYLATE 2.5 mg PO DAILY 07/22/23 07/25/23 Previous Rx's Medication Instructions Recorded Amoxic-Pot Clav 875-125Mg 1 tab PO Q12HR 10 Days #20 tab 10/18/23 [Augmentin 875-125] Allergies Allergy/AdvReac Type Severity Reaction Status Date / Time Sulfa (Sulfonamide AdvReac Rash/Hives Verified 10/18/23 00:20 Antibiotics) Review of Systems ROS Statement: Those systems with pertinent positive or pertinent negative responses have been documented in the HPI. ROS Other: All systems not noted in ROS Statement are negative. Past Medical History Past Medical History: GERD/Reflux, Prostate Disorder History of Any Multi-Drug Resistant Organisms: None Reported Past Surgical History: Hernia Repair Past Psychological History: No Psychological Hx Reported Smoking Status: Never smoker Past Alcohol Use History: Rare Past Drug Use History: None Reported General Exam Limitations: no limitations General appearance: alert, in no apparent distress Head exam: Present: normocephalic, other (Laceration to the upper lip) Eye exam: Present: normal appearance, PERRL, EOMI ENT exam: Present: mucous membranes moist (Anterior laceration to the upper lip as well as an exterior laceration, each is 1 cm long) Neck exam: Present: normal inspection, full ROM. Absent: tenderness Respiratory exam: Present: normal lung sounds bilaterally. Absent: respiratory distress, wheezes, rales, rhonchi, stridor Cardiovascular Exam: Present: regular rate, normal rhythm, normal heart sounds. Absent: systolic murmur, diastolic murmur, rubs, gallop, clicks Extremities exam: Present: normal inspection Neurological exam: Present: alert, oriented X3 Expanded Patient oriented to: Present: person, place, time Speech: Present: fluid speech Cranial nerves: EOM's Intact: Normal Motor strength exam: RUE: 5, LUE: 5, RLE: 5, LLE: 5 Eye Response: (4) open spontaneously Motor Response: (6) obeys commands Verbal Response: (5) oriented Pollo Total: 15 Psychiatric exam: Present: normal affect, normal mood Course Vital Signs 10/18/23 00:16 Temperature 99 F Pulse Rate 86 Respiratory 18 Rate Blood Pressure 136/79 O2 Sat by Pulse 96 Oximetry Procedures - Laceration Laceration #1 Consent Obtained: verbal consent Indication: laceration Site: lip Size (cm): 1 Description: flap Depth: simple, single layer Anesthetic Used: lidocaine 1%, without epi Anesthesia Technique: local infiltration Pre-repair: wound explored, irrigated extensively Type of Sutures: nylon Size of Sutures: 5-0 Number of Sutures: 3 Technique: simple, interrupted Patient Tolerated Procedure: well Laceration #2 Consent Obtained: verbal consent Indication: laceration Site: lip Size (cm): 1 Description: linear Depth: simple, single layer Anesthetic Used: lidocaine 1%, without epi Anesthesia Technique: local infiltration Pre-repair: wound explored Type of Sutures: vicryl Size of Sutures: 5-0 Number of Sutures: 1 Technique: simple, interrupted Patient Tolerated Procedure: well Medical Decision Making - Medical Decision Making Was pt. sent in by a medical professional or institution (, [facility], [facility]ER, urgent care, hospital, or shelter...) When possible be specific @ -No Did you speak to anyone other than the patient for history (EMS, parent, family, police, friend...)? What history was obtained from this source @ -No Did you review nursing and triage notes (agree or disagree)? Why? @ -I reviewed and agree with nursing and triage notes Were old charts reviewed (outside hosp., previous admission, EMS record, old EKG, old radiological studies, urgent care reports/EKG's, shelter records)? Report findings @ -No old charts were reviewed Differential Diagnosis (chest pain, altered mental status, abdominal pain women, abdominal pain men, vaginal bleeding, weakness, fever, dyspnea, syncope, headache, dizziness, GI bleed, back pain, seizure, CVA, palpatations, mental health, musculoskeletal)? @ -Differential includes uncomplicated head injury, concussion, fracture, intracranial hemorrhage, this is not an all-inclusive list EKG interpreted by me (3pts min.). @ -As above X-rays interpreted by me (1pt min.). @ -None done CT interpreted by me (1pt min.). @ -None done U/S interpreted by me (1pt. min.). @ -None done What testing was considered but not performed or refused? (CT, X-rays, U/S, labs)? Why? @ -CT was considered, I educated the patient on benefits of CT in this situation. The patient declined. I educated the patient on the risks associated with foregoing CT today, the patient continued to decline. He is of sound mind and body and able to make his own decisions. What meds were considered but not given or refused? Why? @ -None Did you discuss the management of the patient with other professionals (professionals i.e. [facility] Ramirez, G[facility] ST[employer]ER, lab, RT, psych nurse, social secretary, casing mixer, teacher, surveillance sensor officer, binder caser)? Give summary @ -No Was smoking cessation discussed for >3mins.? @ -No Was critical care preformed (if so, how long)? @ -No Were there social determinants of health that impacted care today? How? (Homelessness, low income, unemployed, alcoholism, drug addiction, transportation, low edu. Level, literacy, decrease access to med. care, care home, rehab)? @ -No Was there de-escalation of care discussed even if they declined (Discuss DNR or withdrawal of care, Hospice)? DNR status @ -No What co-morbidities impacted this encounter? (DM, HTN, Smoking, COPD, CAD, Cancer, CVA, ARF, Chemo, Hep., AIDS, mental health diagnosis, sleep apnea, morbid obesity)? @ -None Was patient admitted / discharged? Hospital course, mention meds given and route, prescriptions, significant lab abnormalities, going to OR and other pertinent info. @ -78-year-old male presenting with chief complaint of facial laceration. Patient had a trip and fall this evening. No loss of consciousness or blood thinners. He has a 1 cm laceration to the upper lip as well as a 1 cm laceration to the interior upper lip. His tetanus is updated today. I advised we obtain CT, patient refused. He is of sound mind and body and able to make his own decisions. Lacerations are repaired. Patient is educated on wound care and signs of infection. He started on Augmentin. Educated on alarm symptoms with regard to his head injury that should prompt immediate reevaluation. Discharged home. Follow-up with PCP. Report back to ER with any new or worsening symptoms. Discussed return parameters and answered all questions. Patient conveyed verbal understanding and agreed to the plan. I discussed this case in detail with my attending Dr. Zhang Undiagnosed new problem with uncertain prognosis? @ -No Drug Therapy requiring intensive monitoring for toxicity (Heparin, Nitro, Insulin, Cardizem)? @ -No Were any procedures done? @ -Laceration repair Diagnosis/symptom? @ -Facial laceration, head injury Acute, or Chronic, or Acute on Chronic? @ -Acute Uncomplicated (without systemic symptoms) or Complicated (systemic symptoms)? @ -Uncomplicated Side effects of treatment? @ -No Exacerbation, Progression, or Severe Exacerbation? @ -No Disposition Clinical Impression: Facial laceration, Closed head injury Disposition: HOME SELF-CARE Condition: Good Instructions (If sedation given, give patient instructions): Care For Your S titches (ED), Laceration (ED), Head Injury (ED), Dental Laceration (ED) Additional Instructions: Follow-up with PCP. Report back to ER with any new or worsening symptoms. Keep the wound clean dry and covered. Wash regularly with soap and water. Avoid fully submerging the wound in water for prolonged periods of time. Monitor for signs of infection, including but not limited to redness, swelling, warmth, tenderness, discharge, fever. Sutures may be removed in 3-5 days Prescriptions: Amoxic-Pot Clav 875-125Mg [Augmentin 875-125] 1 tab PO Q12HR 10 Days #20 tab Is patient prescribed a controlled substance at d/c from ED?: No Referrals: Baldemar Sanchez MD [Primary Care Provider] - 1-2 days Time of Disposition: 01:54
== END 2023-10-18 01:58 | disposition home or self-care (01) ==
LOC: EC 00:01
DX: S01.511A Laceration without foreign body of lip, initial encounter (principal); S09.90XA Unspecified injury of head, initial encounter; Z88.2 Allergy status to sulfonamides; Z23 Encounter for immunization; W01.0XXA Fall on same level from slipping, tripping and stumbling without subsequent striking against object, initial encounter; Y93.01 Activity, walking, marching and hiking
CPT/HCPCS: 12011; 90471; 90715; 99283

== ENCOUNTER → 2023-12-09 | Outpatient (CLI) | payer MEDICARE ==
[2023-12-09 15:17] LABS: HCT 47.8 % (39.6-50.0); HGB 15.7 g/dL (13.0-17.0); MCHC 32.8 g/dL (32.0-37.0); MCV 94.5 FL (80.0-97.0); Mean Platelet Volume 9.5 FL (9.5-12.2); NRBC Per 100 WBC 0 X 10*3/uL (0.00-0.01); Platelet Count 294 X 10*3/uL (140-440); RBC 5.06 X 10*6/uL (4.40-5.60); RDW 13.7 % (11.5-14.5); WBC 6.89 X 10*3/uL (4.50-10.00)
[2023-12-09 15:18] LABS: Basophils # (A) 0.12 X 10*3/uL (0.00-0.10); Basophils % (A) 1.7 %; Eosinophils # (A) 0.27 X 10*3/uL (0.04-0.35); Eosinophils % (A) 3.9 %; Lymphocytes # (A) 1.68 X 10*3/uL (0.90-5.00); Lymphocytes % (A) 24.4 %; Monocytes # (A) 0.63 X 10*3/uL (0.20-1.00); Monocytes % (A) 9.1 %; Neutrophils # (A) 4.15 X 10*3/uL (1.80-7.70); Neutrophils % (A) 60.3 %
[2023-12-09 15:39] LABS: ALT 21 U/L (10-49); AST 24 U/L (14-35); Albumin 4.3 g/dL (3.8-4.9); Albumin/Globulin Ratio 1.87 Ratio (1.60-3.17); Alkaline Phosphatase 101 U/L (41-126); Blood Urea Nitrogen 16.8 mg/dL (9.0-27.0); Calcium 9.7 mg/dL (8.7-10.3); Carbon Dioxide 25.1 mmol/L (21.6-31.8); Chloride 103 mmol/L (96-109); Chol/HDL Ratio 3.25 Ratio; Globulin 2.3 g/dL (1.6-3.3); Glucose 99 mg/dL (70-110); LDL Cholesterol,Calculated 128.8 mg/dL (0.0-131.0); Potassium 4.9 mmol/L (3.5-5.5); Sodium 141 mmol/L (135-145); Total Bilirubin 0.6 mg/dL (0.3-1.2); Total Protein 6.6 g/dL (6.2-8.2); VLDL Calculation 15.16 mg/dL (5.00-40.00)
== END | disposition home or self-care (01) ==
LOC: LABWHC1 11:41
PROVIDERS: ATTEND Internal Medicine Geriatric Medicine
DX: Z00.00 Encounter for general adult medical examination without abnormal findings (principal); K21.9 Gastro-esophageal reflux disease without esophagitis; E78.2 Mixed hyperlipidemia; N40.0 Benign prostatic hyperplasia without lower urinary tract symptoms; R73.9 Hyperglycemia, unspecified
CPT/HCPCS: 36415; 80053; 80061; 83036; 84153; 84443; 85025

== ENCOUNTER → 2024-12-15 | Outpatient (CLI) | payer MEDICARE ==
[2024-12-15 14:30] LABS: Basophils # (A) 0.12 10*3/uL (0.00-0.10); Basophils % (A) 1.6 %; Eosinophils # (A) 0.17 10*3/uL (0.04-0.35); Eosinophils % (A) 2.3 %; HCT 45.1 % (39.6-50.0); HGB 15.3 g/dL (13.0-17.0); Lymphocytes # (A) 1.55 10*3/uL (0.90-5.00); Lymphocytes % (A) 20.6 %; MCH 31.2 pg (27.0-32.0); MCHC 33.9 g/dL (32.0-37.0); Mean Platelet Volume 9.7 fL (9.5-12.2); Monocytes # (A) 0.75 10*3/uL (0.20-1.00); Neutrophils % (A) 65.2 %; Platelet Count 275 10*3/uL (140-440); RDW 13.8 % (11.5-14.5); WBC 7.51 10*3/uL (4.50-10.00)
[2024-12-15 14:43] LABS: ALT 17 U/L (4-49); AST 27 U/L (17-59); African American GFR (CKD) 89 (>60 ml/min/1.73 sqM); Albumin 4.4 g/dL (3.5-5.0); Albumin/Globulin Ratio 1.6; Alkaline Phosphatase 108 U/L (38-126); Anion Gap 7 mmol/L; Blood Urea Nitrogen 15 mg/dL (9-20); Calcium 9.4 mg/dL (8.4-10.2); Carbon Dioxide 28 mmol/L (22-30); Chloride 104 mmol/L (98-107); Globulin 2.7 g/dL; Glucose 97 mg/dL (74-99); Non-African American GFR(CKD) 77 (>60 ml/min/1.73 sqM); Potassium 4.9 mmol/L (3.5-5.1); Sodium 139 mmol/L (137-145); Total Bilirubin 1.2 mg/dL (0.2-1.3); Total Protein 7.1 g/dL (6.3-8.2)
--- NOTE | 2024-12-15 15:44 | CT ---
CT chest with contrast. HISTORY: Pulmonary nodule. COMPARISON: Chest dated 09/08/2023 TECHNIQUE: Multiple axial images were obtained through the thorax following the uneventful administra tion of nonionic IV contrast material. FINDINGS: There are scattered sub-5 mm nodules. There are scattered focal areas of reticular nodular densities, "tree-in-bud densities", primarily in the lower lobes. In the subpleural parenchymal right lower lobe posteriorly, there is increasing nodularity with nodul es measuring up to 9 mm. There is a new 9 mm nodule in the left lung base. There is no airspace consolidation. There is no pleural effusion, pleural thickening or pneumothorax. The great vessels the chest are normal. There is no mediastinal, hilar or axillary adenopathy. There is no pulmonary embolus. Limited scanning of the upper abdomen reveals no gross abnormality.. No focal osseous lesions are seen. IMPRESSION: 1. Scattered reticular nodular densities primarily in the lower lobes with development of nodularity up to 9 mm in the lung bases is described above. Follow-up CT thorax in 4-6 months is recommended to confirm stability. 2. No acute cardiopulmonary disease. [facility], , 12/15/2024 3:42 PM
[2024-12-15 19:40] LABS: Chol/HDL Ratio 2.47 Ratio; VLDL Calculation 11.52 mg/dL (5.00-40.00)
[2024-12-15 19:41] LABS: LDL Cholesterol,Calculated 90.4 mg/dL (0.0-131.0)
== END | disposition home or self-care (01) ==
LOC: RADCTMAIN 13:52
PROVIDERS: ATTEND Internal Medicine Critical Care Medicine
DX: J84.10 Pulmonary fibrosis, unspecified (principal); J98.4 Other disorders of lung; R91.8 Other nonspecific abnormal finding of lung field
CPT/HCPCS: 80061; 80053; 84443; 85025; 83036; 71260; G0103